=== PATIENT | male | born 1985 | race Two or more races ===

== ENCOUNTER 2023-11-15 07:40 | Inpatient (IN) | payer SELFPAY ==
[2023-11-15] VITALS (14 sets, daily range): BP systolic 115–152; BP diastolic 62–92; PULSE 112–135; RESP 15–20; TEMP 36.4–37.2; O2SAT 96–100
--- NOTE | ~2023-11-15 | CT_ITS ---
EXAMINATION: CT abdomen pelvis w con DATE: 11/15/2023 09:13 INDICATION: Epigastric abdominal pain TECHNIQUE: Computed tomography (CT) of the abdomen and pelvis was performed with 100 CC Omnipaque 350 intravenous contrast. Automated exposure control and iterative reconstruction technique were employe d. Exam dose: 180.30 mGy-cm total exam DLP. COMPARISON: None. FINDINGS: The lung bases are clear. Normal heart size. No pericardial or pleural effusion. There is diffuse fatty infiltration of the liver. No hepatic, splenic, pancreatic, and adrenal or marcus al mass lesion is evident other than a 7.5 mm right renal cyst. The gallbladder is present. No gallbladder wall thickening or pericholecystic fluid or fat stranding. No bile duct or pancreatic duct dilatation. Normal caliber of the abdominal aorta. No intraperitoneal or retroperitoneal or pelvic mass lesion or adenopathy or ascites is detected. Normal appendix. No bowel obstruction, bowel wall thickening, pneumatosis or intraperitoneal free air is detected. Urinary bladder is unremarkable. 2.3 x 3.2 cm structure in the left inguinal canal with attenuation o f approximately 36 Hounsfield units. This might be the testicle. Clinical correlation and possible sc rotal ultrasound may be of benefit as clinically appropriate. Normal caliber of the abdominal aorta. No intraperitoneal or retroperitoneal or pelvic mass lesion or adenopathy or ascites. Normal appendix. No bowel obstruction, bowel wall thickening, pneumatosis or intraperitoneal free air .. Included skeletal structures are unremarkable. IMPRESSION: Hepatic steatosis 7.5 mm right renal cyst Normal appendix Suspected testicle and left inguinal canal Reviewed, dictated and finalized at [facility]. Reviewed, dictated and finalized at location B. UNITY PLACEMENT WORKER
--- NOTE | ~2023-11-15 | US_ITS ---
EXAMINATION: US right upper quadrant DATE: 11/18/2023 08:18 INDICATION: Abnormal liver function tests. TECHNIQUE: Multiple grayscale and Doppler ultrasound images of the abdomen were obtained. COMPARISON: CT abdomen and pelvis 11/15/2023 FINDINGS: The visualized portions of the head and body of the pancreas are normal. There is diffuse h epatic steatosis. No liver surface nodularity. There is normal flow in main portal vein. The gallblad benjamín is normal in size. No gallstones or gallbladder wall thickening. The common duct is normal and me asures 3 mm. IMPRESSION: 1. Diffuse hepatic steatosis. Reviewed, dictated and finalized at location E. DRIVER
--- NOTE | ~2023-11-15 | US_ITS ---
EXAMINATION: US scrotum doppler DATE: 11/17/2023 12:23 INDICATION: possible left retracted testicle . TECHNIQUE: Grayscale and Doppler ultrasound images of the testes were obtained. COMPARISON: None. FINDINGS: The right testis measures 4.6 x 2.3 x 2.9 cm. The left testis measures 4.1 x 2.1 x 3.0 cm. No testicular mass. There is normal vascular flow to both testes. The right epididymis is normal with normal vascular flow. The left epididymis is normal with normal vascular flow. There is no varicocel e or hydrocele. IMPRESSION: Normal scrotal ultrasound findings. Specifically, no evidence of retracted/undescended testicle. Reviewed, dictated and finalized at location K. TER TRIMMER IMPRESSION: Normal scrotal ultrasound findings. Specifically, no evidence of retracted/unde scended testicle.
--- NOTE | 2023-11-15 08:11 | ECG_ITS ---
Measurements Intervals [place] Rate: 93 P: 74 OK: 143 QRS: 48 QRSD: 83 T: 64 QT: 363 QTc: 452 Interpretive Statements SINUS RHYTHM POSSIBLE RIGHT ATRIAL ENLARGEMENT [0.25mV P WAVE] POSSIBLE LEFT ATRIAL ENLARGEMENT [-0.1mV P WAVE IN V1/V2] WITHIN NORMAL LIMITS NO PREVIOUS ECG AVAILABLE FOR COMPARISON Electronically Signed On 11-15-2023 13:52:10 DESIGN/ANIMATION INSTRUCTOR by Ky Dye M.D.
--- NOTE | 2023-11-15 08:11 | ED.ABDPAIN ---
HPI - Abdominal Pain General Chief Complaint: Abdominal Pain Stated Complaint: abd pain Time Seen by Provider: 11/15/23 08:11 Source: patient Mode of arrival: EMS Limitations: clinical condition History of Present Illness HPI narrative: 38 years old male came by ambulance to the ED with severe nausea, and vomiting with epigastric pain started 2 days ago. Patient holding a vomiting bag in his hand, unable to tell me any details was ago non because of the constant dry heaving. He denies medical history, no medications, does not smoke or drink or uses drugs Related Data Allergies Allergy/AdvReac Type Severity Reaction Status Date / Time No Known Allergies Allergy Verified 11/15/23 07:53 Review of Systems Review of Systems: ROS unobtainable: Yes unobtainable due to medical condition Exam Narrative: General appearance: Well-developed, well-nourished Skin: Normal color Head: Normocephalic, nontraumatic Eyes: Clear conjunctiva ENT: Oropharynx normal, ears normal, nose normal Neck: Supple, nontender Chest and respiratory: Airway patent, no respiratory distress, no accessory muscle use Heart: Regular rate/rhythm Abdomen: Soft, severe epigastric tenderness, with severe guarding, no rebound, no organomegaly, quiet bowel sounds GENITAL EXAM SHOWED NORMAL TESTICLES, NO TENDERNESS, NO SWELLING, NORMAL PENIS, INGUINAL AREA WITHIN NORMAL LIMIT, NO SWELLING NO BRUISES NO LYMPHADENOPATHY NO TENDERNESS. Course Vital Signs Vital signs: Vital Signs Temperature 36.4 C L 11/15/23 07:46 Pulse Rate 120 H 11/15/23 07:46 Respiratory Rate 18 11/15/23 07:46 Blood Pressure 115/92 H 11/15/23 07:46 Pulse Oximetry 100 11/15/23 07:46 Oxygen Delivery Room Air 11/15/23 07:46 Temperature 36.4 C L 11/15/23 07:46 Pulse Rate 120 H 11/15/23 07:46 Respiratory Rate 18 11/15/23 07:46 Blood Pressure 127/77 11/15/23 13:00 Pulse Oximetry 96 11/15/23 12:20 Oxygen Delivery Room Air 11/15/23 07:46 MDM - Abdominal Pain MDM Narrative Medical decision making narrative: PATIENT CAME WITH DIFFUSE ABDOMINAL PAIN AND NAUSEA, VOMITING FOR THE LAST 48 HOURS UNABLE TO KEEP ANYTHING DOWN. VITAL SIGNS ON ARRIVAL SHOWED PULSE OF 120 BEATS PER MINUTE, PHYSICAL EXAMINATION SHOWED RESTLESS, ANXIOUS PATIENT HOLDING VOMITING BAG IN HAND, UNABLE TO STOP DRY HEAVING UNABLE TO ANSWER QUESTION APPROPRIATELY BECAUSE OF THE CONSTANT DRY HE. ABDOMINAL EXAM WAS SLIGHTLY TENDER MAINLY EPIGASTRIC AREA. DIFFERENTIAL DIAGNOSIS GASTRITIS, CHOLECYSTITIS, PANCREATITIS, CONSTIPATION, PERFORATION, ANXIETY LIKE SYMPTOMS, CYCLIC VOMITING SYNDROME WORKUP TODAY SHOWED ELEVATED GLUCOSE OF 245, PATIENT IS NOT DIABETIC, CT ABDOMEN AND PELVIS WITH IV CONTRAST SHOWED RIGHT RENAL CYST, SUSPECT TESTICLE AT THE LEFT INGUINAL CANAL, PHYSICAL EXAMINATION SHOWED NORMAL TESTICLES, NO TENDERNESS OR MASS OR SWELLING OF THE LEFT GROIN AREA OR THE TESTICLES. THIS FINDING WAS COINCIDENTAL, PATIENT'S SYMPTOMS DOES NOT MATCH WITH ANY ABNORMAL FINDING ON THE LEFT GROIN AREA. HIGH LIKELY IS CHRONIC OR MISS READING OF THE CT SCAN, PATIENT REQUESTED TO EAT BEFORE HE GETS DISCHARGED, SUBSEQUENTLY VOMITED WITH DRY HEAVE, BLOOD GLUCOSE IS 245, DKA IS A POSSIBILITY, VENOUS BLOOD GAS SHOWED PH OF 7.3, PCO2 IS 23.8 WHICH COULD BE SECONDARY TO METABOLIC ACIDOSIS CAUSING HYPERVENTILATION. PH IS NORMAL PROBABLY BECAUSE PATIENT BLOOD GLUCOSE DECREASED AFTER 2 L OF NORMAL SALINE. Differential Diagnosis Differential diagnosis: Likely abdominal pain and other ( ABOVE) Medical Records Attestation: I reviewed the patient's medical records. Lab Data Attestation: I reviewed the patient's lab results.
[2023-11-15] MEDS: SODIUM CHLORIDE 0.9% IV 2,000 ML 999 ML IV CONT (08:21)
[2023-11-15] MEDS: HYDROmorphone HCL INJ (*CRX) 1 MG/ML SYR 0.5 MG IV PUSH (08:21)
[2023-11-15] MEDS: ONDANSETRON INJ 4 MG/2 ML VIAL IV PUSH ×2 (08:21→17:02)
[2023-11-15] MEDS: diphenhydrAMINE HCl INJ 50 MG/ML VIAL IV PUSH (08:26)
[2023-11-15] MEDS: METOCLOPRAMIDE HCL INJ 10 MG/2 ML VIAL IV PUSH ×2 (08:26→23:06)
[2023-11-15 08:45] LABS: Basophils Percent Auto 0.7 % (0.2-1.2); Eosinophils Absolute Auto 0.2 K/mm3 (0-0.3); Eosinophils Percent Auto 2.7 % (0-4.4); Hematocrit 50.2 % (42.0-52.0); Hemoglobin 17.7 g/dL (14.0-18.0); Immature Granulocyte Absolute 0.01 K/mm3 (0.00-0.031); Immature Granulocyte Percent A 0.2 % (0-0.5); Lymphocytes Absolute Auto 2.13 K/mm3 (0.9-3.2); Lymphocytes Percent Auto 35.7 % (18.3-44.2); Mean Corpuscular HGB Conc 35.3 g/dl (32-36); Mean Corpuscular Volume 87.9 fl (80-100); Mean Platelet Volume 12.7 fl (7.4-10.4); Monocytes Absolute Auto 0.6 K/mm3 (0.1-0.6); Monocytes Percent Auto 9.7 % (2.6-8.5); Neutrophils Absolute Auto 3.1 K/mm3 (1.3-6.7); Platelet Count Result 181 k/mm3 (150-375); Red Blood Count 5.71 M/mm3 (4.6-6.20); Red Cell Distribution Width 11.8 % (11.5-14.5)
[2023-11-15 08:56] LABS: Alanine Aminotransferase 39 U/L (6-50); Albumin Level 4.9 g/dL (3.5-5.1); Alkaline Phosphatase 138 U/L (38-126); Anion Gap 25 mmol/L (8-16); Aspartate Amino Transferase 41 U/L (17-59); Bilirubin,Total 1.2 mg/dL (0.2-1.3); Blood Urea Nitrogen 24 mg/dL (9-20); Calcium 10.1 mg/dL (8.4-10.2); Carbon Dioxide 19 mmol/L (22-30); Chloride 91 mmol/L (98-107); Estimated Glomerular Filt Rate > 60; Glucose 245 mg/dL (65-110); Lipase 99 U/L (23-300); Potassium 3.5 mmol/L (3.4-5.0); Sodium 135 mmol/L (137-145)
[2023-11-15 08:57] LABS: Lactic Acid Reflex 1.8 mmol/L (0.7-2.0)
[2023-11-15 09:03] LABS: INR 0.9; Partial Thromboplastin Time 22.2 SECONDS (22.3-36.8); Prothrombin Time 12.8 Seconds (11.1-14.7)
[2023-11-15 12:43] LABS: Appearance Urine Clear (Clear); Bacteria Urine None Seen /hpf; Bilirubin Urine Negative (Negative); Blood Urine Negative (Negative); Color Urine Yellow (Yellow); Glucose Urine UA 3+ mg/dL (Negative); Ketones Urine 3+ mg/dL (Negative); Leukocyte Esterase Ur Negative LEU/UL (Negative); Nitrate Urine Negative (Negative); Non Pathogenic Casts 0-2; Protein Urine 1+ mg/dL (Negative); RBC Urine 0-2 /hpf (0-2); Squamous Epithelial Cell Urine None seen /hpf (Few); Urobilinogen Urine 0.2 mg/dL (<2.0); WBC Urine 0-5 /hpf
[2023-11-15 12:44] LABS: Add Urine Microscopic? YES; Specific Grav Ur 1.038 (1.001-1.035)
[2023-11-15 14:16] LABS: Fractional Inspired Oxygen 21 %; HCO3 VBG 12.5 mEq/l (24.0-30.0); PO2 VBG 91.2 mmHg (35.0-45.0); pH VBG 7.337 (7.300-7.400)
[2023-11-15 14:17] LABS: Device ROOM AIR; PCO2 VBG 23.8 mmHg (42.0-48.0)
[2023-11-15 15:38] LABS: Need Manual Microscopic Reviewed
[2023-11-15] MEDS: MORPHINE SULFATE (*CRX) 4 MG/ML INJ IV PUSH ×2 (17:03→19:22)
--- NOTE | 2023-11-15 17:50 | ADMGEN ---
This patient, Ana Nolan, was admitted to 2 Medical Room 256-. Patient/family oriented to hospital policies and general routines including ID bracelet, bed and alarms, visiting hours, pain management, procedures, bathroom and other care routines, personal items, smoking policy, room service/diet, and visiting hours. Information on how to activate the Rapid Response Team has been discussed. Patient/Family are encouraged to report perceived risks to care and to ask questions if they do not understand what they are told or what they should do.
[2023-11-15] MEDS: SODIUM CHLORIDE 0.9% IV 1,000 ML 150 ML IV CONT ×2 (19:07→23:07)
[2023-11-15 19:23] LABS: Glucose Point of Care > 500 mg/dl (65-105)
[2023-11-15 19:23] LABS: Glucose Point of Care > 500 mg/dl (65-105)
[2023-11-15] MEDS: LACTATED RINGERS 1,000 ML 999 ML IV CONT (20:06)
[2023-11-15 20:12] LABS: Blood Urea Nitrogen 18 mg/dL (9-20); Calcium 8.5 mg/dL (8.4-10.2); Carbon Dioxide < 5 mmol/L (22-30); Chloride 100 mmol/L (98-107); Estimated Glomerular Filt Rate > 60; Glucose 480 mg/dL (65-110); Potassium 4.6 mmol/L (3.4-5.0); Sodium 133 mmol/L (137-145)
[2023-11-15 20:22] LABS: Alveolar/Arterial O2 Gradient 16.2 mmHg; Base Excess ABG -20.6 mEq/l (+/-2.0); Fractional Inspired Oxygen 21 %; HCO3 ABG 5.5 mEq/l (22.0-26.0); Oxygen Content ABG 19.8 %vol (16.0-22.0); Oxygen Saturation ABG 97.2 % (95.0-100.0); PO2 ABG 114.7 mmHg (80.0-100.0); PO2 FiO2 Ratio Arterial Blood 5.46 %; Total Hemoglobin 14.6 g/dL (12.0-18.0)
[2023-11-15 20:23] LABS: Hemoglobin A1C 10.4 % (<5.7)
[2023-11-15 20:25] LABS: pH ABG 7.166 (7.350-7.450)
[2023-11-15 20:26] LABS: Device ROOM AIR; Modified Allen's Test Pass; PCO2 ABG 15.7 mmHg (35.0-45.0); Site Drawn LEFT RADIAL
[2023-11-15 21:08] LABS: Phosphorus 3.9 mg/dL (2.5-4.5)
--- NOTE | 2023-11-15 22:00 | PC.NURSE ---
This patient, Ana Nolan, was received from [address] [place] [id number] on 11/15/23 at 2200. Patient/family oriented to unit policies and routines. Report received from Meghna BURR.
[2023-11-15] MEDS: INSULIN HUMAN REGULAR (*BKC) 100 UNITS in SODIUM CHLORIDE 0.9% IV 99 ML 6.5 UNITS IV CONT (22:23)
--- NOTE | 2023-11-15 22:52 | PM.IMHP ---
H&P: HPI History of Present Illness Date/Time: 11/15/23 22:52 Chief Complaint: N/V Narrative: 38 y/o M presents here with nausea, vomiting, abdominal pain, and acid reflux with PMH of diabetes. Patient reports nausea, vomiting, diffuse abdominal pain, and acid reflux. Initially started on Saturday (11/10) with poor appetite. Then developed the N/V, abdominal pain, and pain in his throat. LBM was on Sun (11/10). Dx with DM 6 years ago. Initially believed patient was not a diabetic. Patient is prescribed regular insulin and glargine. Patient reports he has not needed these medications, unclear when patient stopped taking his medications. Last filled on 09/15/23, prior to that was filled in February of 2023 (40 day supplies). States that when his belly feels good then he does not need it. Emesis has been bilious, but non-bloody. Initial VS: Hr 120, 97.5F, RR 18, 100% on RA, 115/92. ED workup showed:No leukocytosis or anemia, pH 7.337, pCO2 on VBG was 23.8, gap of 25, sodium 135, initial glucose 245, LFTs normal, lipase 99, UA showed protein, glucose, ketones with a high specific gravity. CT of the abdomen pelvis showed hepatic steatosis, 7.5 mm right renal cyst, normal appendix, and a 2.2 x 3.2 cm structure in the left inguinal canal. repeat labs post admission to the floor showed glucose >500 despite 1L of IV fluids. Repeat BMP and ABG showed sodium of 133, CO2 <5, unable to calculate gap, glucose 480, A1c 10.4, and ABG showed pH 7.166, 15.7, pO2 114.7, and HCO3 5.5. Review of Systems Review of Systems: All systems reviewed & are unremarkable except as noted in HPI and below PMFSH Past Medical History Medical History (Updated 11/15/23 @ 23:47 by Mildred Valdez APRN) Diabetes Surgical History Surgical History (Updated 11/15/23 @ 23:47 by Mildred Valdez APRN) No significant past surgical history Social History Social History Smoking status: Never smoker Alcohol intake: never Substance use: never Substance use type: does not use Do You Feel Safe in your Home?: Yes Lack of Transportation: No Lack of Food: Never True Current Housing: I Have Housing Concerned About Future Housing: No Difficulty Paying Gas/Electric Bills: No Difficulty Paying for Meds: No Currently Unemployed: No Education: Trade/Vocational Certificate Difficulty w/ Childcare or Family Care: No Spiritual care concerns: No Meds Home Medications and Allergies Home Medications Medication Instructions Recorded Confirmed Type insulin glargine 100 unit/mL (3 31 unit subcut DAILY 11/15/23 11/15/23 History mL) subcutaneous pen (Basaglar KwikPen U-100 Insulin) insulin regular human 100 unit/mL See Rx Instructions .Route .COMPLEX 11/15/23 11/15/23 History injection solution (Humulin R Regular U-100 Insulin) Allergies Allergy/AdvReac Type Severity Reaction Status Date / Time No Known Allergies Allergy Verified 11/15/23 18:42 Vital Signs Vital Signs - 24 hr 11/15/23 07:46 11/15/23 07:49 11/15/23 08:46 Temperature 97.5 F L Pulse Rate 120 H Respiratory Rate 18 Blood Pressure 115/92 H 131/90 Pulse Oximetry 100 98 98 Oxygen Delivery Room Air 11/15/23 09:14 11/15/23 09:16 11/15/23 09:30 Temperature Pulse Rate Respiratory Rate Blood Pressure 152/79 H 127/85 Pulse Oximetry 97 97 97 Oxygen Delivery 11/15/23 11:00 11/15/23 12:20 11/15/23 13:00 Temperature Pulse Rate Respiratory Rate Blood Pressure 129/82 127/77 Pulse Oximetry 99 96 Oxygen Delivery 11/15/23 16:57 11/15/23 17:00 11/15/23 17:59 Temperature 98.9 F Pulse Rate 127 H Respiratory Rate 20 Blood Pressure 135/77 130/83 140/92 H Pulse Oximetry 99 100 100 Oxygen Delivery 11/15/23 19:35 Temperature 98.2 F Pulse Rate 112 H Respiratory Rate 18 Blood Pressure 133/62 Pulse Oximetry 98 Oxygen Delivery Exam Const:
[2023-11-15 23:13] LABS: Glucose Point of Care 311 mg/dl (65-105)
[2023-11-15 23:13] LABS: Glucose Point of Care 357 mg/dl (65-105)
[2023-11-16] VITALS (14 sets, daily range): BP systolic 96–123; BP diastolic 53–73; PULSE 73–122; RESP 13–19; TEMP 36.5–37; O2SAT 97–100
[2023-11-16] MEDS: LACTATED RINGERS 1,000 ML 999 ML IV CONT (00:23)
[2023-11-16] MEDS: KCL 20 MEQ/D5/0.45% SOD CHL 1,000 ML 150 ML IV CONT ×2 (00:27→07:18)
[2023-11-16 01:11] LABS: Anion Gap 22 mmol/L (8-16); Blood Urea Nitrogen 16 mg/dL (9-20); Calcium 7.8 mg/dL (8.4-10.2); Carbon Dioxide 9 mmol/L (22-30); Chloride 106 mmol/L (98-107); Estimated Glomerular Filt Rate > 60; Glucose 161 mg/dL (65-110); Potassium 3.7 mmol/L (3.4-5.0); Sodium 137 mmol/L (137-145)
[2023-11-16 01:15] LABS: Glucose Point of Care 196 mg/dl (65-105)
[2023-11-16 01:24] LABS: Glucose Point of Care 161 mg/dl (65-105)
[2023-11-16 02:25] LABS: Glucose Point of Care 167 mg/dl (65-105)
[2023-11-16 03:30] LABS: Glucose Point of Care 153 mg/dl (65-105)
[2023-11-16 04:34] LABS: Basophils Percent Auto 0.3 % (0.2-1.2); Hematocrit 36.8 % (42.0-52.0); Hemoglobin 12.6 g/dL (14.0-18.0); Immature Granulocyte Absolute 0.05 K/mm3 (0.00-0.031); Immature Granulocyte Percent A 0.4 % (0-0.5); Lymphocytes Absolute Auto 2.13 K/mm3 (0.9-3.2); Lymphocytes Percent Auto 18.3 % (18.3-44.2); Mean Corpuscular HGB Conc 34.2 g/dl (32-36); Mean Corpuscular Hemoglobin 31.3 pg (26-34); Mean Corpuscular Volume 91.5 fl (80-100); Mean Platelet Volume 12.3 fl (7.4-10.4); Monocytes Absolute Auto 0.9 K/mm3 (0.1-0.6); Monocytes Percent Auto 7.8 % (2.6-8.5); Neutrophils Absolute Auto 8.5 K/mm3 (1.3-6.7); Neutrophils Percent Auto 73.2 % (45.5-73.1); Platelet Count Result 126 k/mm3 (150-375); Red Blood Count 4.02 M/mm3 (4.6-6.20); White Blood Count 11.6 K/mm3 (4.5-10.0)
[2023-11-16 04:46] LABS: Alanine Aminotransferase 36 U/L (6-50); Albumin Level 3.2 g/dL (3.5-5.1); Alkaline Phosphatase 82 U/L (38-126); Anion Gap 12 mmol/L (8-16); Aspartate Amino Transferase 45 U/L (17-59); Bilirubin,Total 0.6 mg/dL (0.2-1.3); Blood Urea Nitrogen 14 mg/dL (9-20); Calcium 7.5 mg/dL (8.4-10.2); Carbon Dioxide 15 mmol/L (22-30); Chloride 107 mmol/L (98-107); Estimated Glomerular Filt Rate > 60; Glucose 152 mg/dL (65-110); Magnesium 2.1 mg/dL (1.6-2.3); Phosphorus 1.9 mg/dL (2.5-4.5); Potassium 3.6 mmol/L (3.4-5.0); Sodium 134 mmol/L (137-145)
[2023-11-16 05:58] LABS: Alveolar/Arterial O2 Gradient 17.3 mmHg; Fractional Inspired Oxygen 21 %; HCO3 ABG 15.2 mEq/l (22.0-26.0); Oxygen Content ABG 17.4 %vol (16.0-22.0); Oxygen Saturation ABG 97.7 % (95.0-100.0); Oxyhemoglobin 96.7 % THb (90.0-100.0); PCO2 ABG 25.7 mmHg (35.0-45.0); PO2 ABG 101.7 mmHg (80.0-100.0); PO2 FiO2 Ratio Arterial Blood 4.84 %; Total Hemoglobin 12.7 g/dL (12.0-18.0); pH ABG 7.391 (7.350-7.450)
[2023-11-16 06:02] LABS: Device ROOM AIR; Site Drawn RIGHT BRACHIAL
[2023-11-16] MEDS: METOCLOPRAMIDE HCL INJ 10 MG/2 ML VIAL IV PUSH (06:42)
[2023-11-16 06:53] LABS: Glucose Point of Care 169 mg/dl (65-105)
[2023-11-16 06:53] LABS: Glucose Point of Care 168 mg/dl (65-105)
[2023-11-16 06:54] LABS: Glucose Point of Care 192 mg/dl (65-105)
[2023-11-16 07:21] LABS: Glucose Point of Care 192 mg/dl (65-105)
--- NOTE | 2023-11-16 08:43 | WPDCNINT ---
Assessment and Plan Assessment and plan (1) DKA (diabetic ketoacidosis): Code(s): E11.10 - Type 2 diabetes mellitus with ketoacidosis without coma Status: Acute Assessment and Plan: Patient presented with DKA and was started on IV fluid bolus followed by IV fluids along with insulin infusion Serial BMPs were done His anion gap has closed acidosis has improved But he does not appear to be ready to take p.o. diet I will start clear liquid diet and advance as tolerated Continue IV insulin infusion at this time and will transition in his symptoms Continue serial BMPs (2) Abdominal pain: Code(s): R10.9 - Unspecified abdominal pain Status: Acute Assessment and Plan: Patient has abdominal pain which could be from DKA but he does have tenderness in epigastric area. He does admit to taking significant amount of aspirin for pain this could be gastritis or even peptic ulcer disease. He did drop his hemoglobin although he has received significant amount of IV fluids and has not had any bowel movement or vomiting suggestive of bleeding Will check Hemoccult if patient has a bowel movement Start Protonix IV Q 12 hours Monitor hemoglobin at this time Consult GI (3) Abnormal CT scan, pelvis: Code(s): R93.5 - Abnormal findings on diagnostic imaging of other abdominal regions, including retroperitoneum Status: Acute Assessment and Plan: CT scan of pelvis show suggested suspected testicle in left inguinal canal But on exam patient has both testicle in his scrotum. 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 which could be the cause of abnormality on the CT scan (4) Electrolyte abnormality: Code(s): E87.8 - Other disorders of electrolyte and fluid balance, not elsewhere classified Status: Acute Assessment and Plan: Replace low potassium and phosphate Continue monitor electrolytes and replace as needed Plan DVT prophylaxis -SCDs Stress ulcer prophylaxis -PPI Nutrition -clear liquid diet advance as tolerated Code Status - Full Code Total Critical Care Time - 30 minutes Due to a high probability of clinically significant, life threatening deterioration, the patient required my highest level of preparedness to intervene emergently and I personally spent this critical care time directly and personally managing the patient. This critical care time included obtaining a history; examining the patient; pulse oximetry; ordering and review of studies; arranging urgent treatment with development of a management plan; evaluation of patient's response to treatment; frequent reassessment; and discussions with other providers. It was exclusive of separately billable procedures and treating other patients and teaching time. Please see Assessment and Plan section and the rest of the note for further information on patient assessment and treatment Habilitation Specialist Consult Note Consult date: 11/16/23 Reason for consult: DKA HPI: Ana Nolan is a 38 year old male with no known past medical history presented to ER yesterday with chief complaint of nausea vomiting abdominal pain and heartburn. Patient states that he got sick 4 days ago and started having nausea vomiting abdominal pain. 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 He states that he did take some aspirin along with other medications he could not tell me the name. Pain was epigastric in location did not radiate anywhere else was severe constant sharp and associated with nausea and vomiting. Denies any blood in his vomit. Denies any diarrhea but is constipated. He denies any fever chest pain shortness a breath. He denies any recent weight loss again. Prior to the symptoms he states his appetite was good and he denies any dysuria hematuria frequency. He states now he is scared of eating drinki
[2023-11-16 08:46] LABS: Glucose Point of Care 214 mg/dl (65-105)
[2023-11-16 08:46] LABS: Anion Gap 10 mmol/L (8-16); Blood Urea Nitrogen 13 mg/dL (9-20); Calcium 7.4 mg/dL (8.4-10.2); Carbon Dioxide 17 mmol/L (22-30); Chloride 106 mmol/L (98-107); Estimated Glomerular Filt Rate > 60; Glucose 193 mg/dL (65-110); Potassium 3.3 mmol/L (3.4-5.0); Sodium 133 mmol/L (137-145)
[2023-11-16] MEDS: PANTOPRAZOLE SODIUM IV 40 MG VIAL IV PUSH ×2 (08:47→21:15)
[2023-11-16] MEDS: ENOXAPARIN 40 MG/0.4 ML SYRINGE SUB-Q (08:47)
[2023-11-16] MEDS: DOCUSATE SODIUM 100 MG CAPSULE PO ×2 (09:31→21:16)
[2023-11-16] MEDS: POTASSIUM PHOS,M-BASIC-D-BASIC 20 MMOL in SODIUM CHLORIDE 0.9% IV 250 ML 64.17 MMOL IVPB (09:31)
[2023-11-16 09:38] LABS: Glucose Point of Care 223 mg/dl (65-105)
[2023-11-16 10:30] LABS: Glucose Point of Care 228 mg/dl (65-105)
[2023-11-16 11:38] LABS: Glucose Point of Care 230 mg/dl (65-105)
[2023-11-16 12:18] LABS: Hematocrit 36.4 % (42.0-52.0); Hemoglobin 12.4 g/dL (14.0-18.0); Mean Corpuscular HGB Conc 34.1 g/dl (32-36); Mean Corpuscular Hemoglobin 31.1 pg (26-34); Mean Corpuscular Volume 91.2 fl (80-100); Mean Platelet Volume 12.3 fl (7.4-10.4); Platelet Count Result 131 k/mm3 (150-375); Red Blood Count 3.99 M/mm3 (4.6-6.20); White Blood Count 8.2 K/mm3 (4.5-10.0)
[2023-11-16 12:35] LABS: Anion Gap 9 mmol/L (8-16); Blood Urea Nitrogen 11 mg/dL (9-20); Calcium 7.4 mg/dL (8.4-10.2); Carbon Dioxide 18 mmol/L (22-30); Chloride 106 mmol/L (98-107); Estimated Glomerular Filt Rate > 60; Glucose 234 mg/dL (65-110); Potassium 3.5 mmol/L (3.4-5.0); Sodium 133 mmol/L (137-145)
[2023-11-16 12:43] LABS: Glucose Point of Care 315 mg/dl (65-105)
[2023-11-16] MEDS: INSULIN GLARGINE (*BKC) 100 UNITS/ML 25 UNITS SUB-Q ×2 (13:11→21:16)
--- NOTE | 2023-11-16 15:09 | PM.IMPN ---
Progress Note: A&P Assessment and Plan (1) DKA (diabetic ketoacidosis): Code(s): E11.10 - Type 2 diabetes mellitus with ketoacidosis without coma Status: Acute Assessment and Plan: Patient presents with n/v and abdominal pain and found to have DKA ABG 7.17/16/115 on RA. Serum bicarb <5 and AG at least 28. Glucose >500. He was started on IV fluid bolus followed by IV fluids and insulin infusion Serial BMPs and his anion gap has closed Clear liquid diet started and tolerating this. Advance diet as tolerated He was transitioned to SQ insulin (2) Abdominal pain: Code(s): R10.9 - Unspecified abdominal pain Status: Acute Assessment and Plan: Patient presents with abdominal pain most likely related to the DKA. He had tenderness in the epigastric area for other but not currently. He does take a significant amount of aspirin for pain so thus this could be gastritis or PUD Hgb ws 17.7 on admisison and dropped to 12 range but more likely related to IV fluids and that he was hemoconcentrated. Continue Protonix IV Q 12 hours Monitor hemoglobin GI consulted (3) Abnormal CT scan, pelvis: Code(s): R93.5 - Abnormal findings on diagnostic imaging of other abdominal regions, including retroperitoneum Status: Acute Assessment and Plan: CT scan of pelvis show suggested suspected testicle in left inguinal canal Testicles appears to be in the scrotum on exam but could be fluid filled sac. Consider also could be LN. 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 Check scrotal US. (4) Electrolyte abnormality: Code(s): E87.8 - Other disorders of electrolyte and fluid balance, not elsewhere classified Status: Acute Assessment and Plan: Replace low potassium and phosphate Continue monitor electrolytes and replace as needed (5) Diabetes: Code(s): E11.9 - Type 2 diabetes mellitus without complications Status: Acute Assessment and Plan: A1c 10.4. The patient's blood glucose was reviewed on 2/3 Glucose better with insulin drip. Now transtioned to Lantus Continue AccuCheks covering with sliding scale. Hypoglycemia protocol available as needed. Plan DVT prophylaxis -SCDs Stress ulcer prophylaxis -PPI Nutrition -clear liquid diet advance as tolerated Code Status - Full Code Subjective Date/time seen: 11/16/23 15:09 Interval history: 38yo male with DM here for n/v and abdominal pain and found to have DKA Assuming care. Chart reviewed. He is now off the insulin drip. He still feels nausea but better. Tolerating the clear liquid diet. Exam Narrative: AF 98.4 112/73 89 18 98% ra Gen - NARD Chest - CTA bilaterally, nml RR CV - RRR S1/S2. Tele showing sinus tachycardia but no significant dysrhythmias Abd - Soft, NT/ND, Positive BS - testicle descended and no obvious masses in the left inguinal canal. no hernia Ext - No pedal edema Neuro - Alert and oriented. Nonfocal exam. Psych - Nml mood and affect Skin - Warm and dry Objective Data Vital Signs Vital Signs: Vital Signs - 24 hr 11/15/23 16:57 11/15/23 17:00 11/15/23 17:59 Temperature 98.9 F Pulse Rate 127 H Respiratory Rate 20 Blood Pressure 135/77 130/83 140/92 H Pulse Oximetry 99 100 100 Oxygen Delivery 11/15/23 19:35 11/15/23 22:00 11/16/23 00:00 Temperature 98.2 F Pulse Rate 112 H Respiratory Rate 18 Blood Pressure 133/62 Pulse Oximetry 98 Oxygen Delivery Room Air Room Air 11/15/23 22:10 11/16/23 00:00 11/16/23 02:00 Temperature 98.1 F Pulse Rate 135 H 121 H 116 H Respiratory Rate 15 15 Blood Pressure 120/63 Pulse Oximetry 100 100 Oxygen Delivery 11/16/23 02:01 11/16/23 04:00 11/16/23 04:00 Temperature 98.2 F Pulse Rate 116 H 105 H Respiratory Rate 18 13 Bl
[2023-11-16 16:23] LABS: Glucose Point of Care 246 mg/dl (65-105)
[2023-11-16] MEDS: INSULIN ASPART (*BKC) 100 UNITS/ML SUB-Q (17:46)
--- NOTE | 2023-11-16 18:05 | PC.NURSE ---
Dr. Ambrocio at bedside.
--- NOTE | 2023-11-16 18:32 | WPDGICN ---
Assessment and Plan Assessment and plan (1) Nausea and vomiting in adult: Code(s): R11.2 - Nausea with vomiting, unspecified Status: Acute Assessment and Plan: improved as his DKA was treated ppi daily for now and diet as tolerated may need EGD at some point, this can be done as outpatient if symptomatically better (2) DKA (diabetic ketoacidosis): Code(s): E11.10 - Type 2 diabetes mellitus with ketoacidosis without coma Status: Acute Assessment and Plan: treated it seems he was not using his DM medications (3) Abnormal CT scan, pelvis: Code(s): R93.5 - Abnormal findings on diagnostic imaging of other abdominal regions, including retroperitoneum Status: Acute (4) Electrolyte abnormality: Code(s): E87.8 - Other disorders of electrolyte and fluid balance, not elsewhere classified Status: Acute Assessment and Plan: low K replaced GI Consult Note Consult date/time: 11/16/23 18:32 Reason for consult: n/v, epigastric pain HPI: Ana Nolan is a 38 year old male originally from [facility] diagnosed with DM about 6 years ago but apparently has not been using his DM medications. He came to ER with almost 4 days of nausea, vomiting and epigastric abdominal pain and heartburn.? He was taking [id number] medications from [facility] but could not tell me name, probably some aspirin on it. Pain was epigastric in location did not radiate anywhere else and severe associated with nausea and vomiting.? He was diagnosed with DKA then transferred to ICU. Pain is resolved now after DKA resolved, on insulin gtt. CT scan of the abdomen pelvis showed Hepatic steatosis, right renal cyst, Suspected testicle and left inguinal canal. He never had EGD but feeling much better now and tolerating oral. Review of Systems Constitutional: Constitutional: Denies chills Eyes: Eyes: Denies blurry vision ENT: Reports Normal hearing present Cardiovascular: Cardiovascular: Denies chest pain Respiratory: Respiratory: Denies cough Gastrointestinal: Gastrointestinal: Reports abdominal pain and Reports nausea Genitourinary: Genitourinary: Denies dysuria Musculoskeletal: Musculoskeletal: Denies neck pain Integumentary/Breasts: Skin/Breast: Denies rash Neurologic: Denies Abnormal speech present Psychiatric: Psychiatric: Denies behavioral changes [facility] Past Medical History Medical History (Updated 02/03/24 @ 18:36 by Endy Neumann MD) Diabetes Nausea and vomiting in adult Surgical History Surgical History No significant past surgical history Social History Social History (Updated 11/16/23 @ 08:47 by Rao Fatima MD) Social History: Smokes 5 cigarettes a day denies any alcohol or drug use. 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 Smoking status: Never smoker Alcohol intake: never Substance use: never Substance use type: does not use Do You Feel Safe in your Home?: Yes Lack of Transportation: No Lack of Food: Never True Current Housing: I Have Housing Concerned About Future Housing: No Difficulty Paying Gas/Electric Bills: No Difficulty Paying for Meds: No Currently Unemployed: No Education: Trade/Vocational Certificate Difficulty w/ Childcare or Family Care: No Spiritual care concerns: No Meds Home Medications and Allergies Home Medications Medication Instructions Recorded Confirmed Type insulin glargine 100 unit/mL (3 31 unit subcut DAILY 11/15/23 11/15/23 History mL) subcutaneous pen (Basaglar KwikPen U-100 Insulin) insulin regular human 100 unit/mL See Rx Instructions .Route .COMPLEX 11/15/23 11/15/23 History injection solution (Humulin R Regular U-100 Insulin) Allergies Allergy/AdvReac Type Severity Reaction Status Date / Time No Known Allergies Allergy Verified 11/15/23 18:42 Vital Signs Vital Signs - 24 hr 11/15/23 19:35 11/15/23 22:0
[2023-11-16 20:14] LABS: Glucose Point of Care 169 mg/dl (65-105)
[2023-11-17] VITALS (11 sets, daily range): BP systolic 110–140; BP diastolic 64–97; PULSE 72–109; RESP 9–25; TEMP 36.3–36.9; O2SAT 99–100
--- NOTE | 2023-11-17 02:28 | PC.NURSE ---
This RN called to bedside by patient. Patient feels like he has a low blood sugar and requests glucose check. Critical result of 50 obtained. Attempted glucose gel per protocol. Patient unable to tolerate. Requests juice. Gave milk and 2 juices. Repeat glucose of 47. Patient unable to tolerate juice and/or milk. Gave D50.
[2023-11-17] MEDS: DEXTROSE 50% 25 GM/50 ML SYRINGE IV PUSH ×3 (03:00→07:46)
[2023-11-17 03:20] LABS: Glucose Point of Care 50 mg/dl (65-105)
[2023-11-17 03:20] LABS: Glucose Point of Care 234 mg/dl (65-105)
[2023-11-17 03:20] LABS: Glucose Point of Care 47 mg/dl (65-105)
[2023-11-17 04:38] LABS: Hematocrit 34.2 % (42.0-52.0); Hemoglobin 12.1 g/dL (14.0-18.0); Mean Corpuscular HGB Conc 35.4 g/dl (32-36); Mean Corpuscular Hemoglobin 31.3 pg (26-34); Mean Corpuscular Volume 88.6 fl (80-100); Mean Platelet Volume 12.5 fl (7.4-10.4); Platelet Count Result 109 k/mm3 (150-375); Red Blood Count 3.86 M/mm3 (4.6-6.20); Red Cell Distribution Width 11.9 % (11.5-14.5); White Blood Count 4.5 K/mm3 (4.5-10.0)
[2023-11-17 05:55] LABS: Glucose Point of Care 116 mg/dl (65-105)
[2023-11-17 07:39] LABS: Alanine Aminotransferase 29 U/L (6-50); Albumin Level 2.8 g/dL (3.5-5.1); Alkaline Phosphatase 78 U/L (38-126); Anion Gap 2 mmol/L (8-16); Aspartate Amino Transferase 39 U/L (17-59); Bilirubin,Total 0.9 mg/dL (0.2-1.3); Blood Urea Nitrogen 4 mg/dL (9-20); Carbon Dioxide 29 mmol/L (22-30); Chloride 102 mmol/L (98-107); Estimated Glomerular Filt Rate > 60; Glucose 85 mg/dL (65-110); Phosphorus 1.7 mg/dL (2.5-4.5); Potassium 2.4 mmol/L (3.4-5.0); Sodium 133 mmol/L (137-145)
--- NOTE | 2023-11-17 08:18 | WPDINTPN ---
Progress Note: A&P Assessment and Plan (1) DKA (diabetic ketoacidosis): Code(s): E11.10 - Type 2 diabetes mellitus with ketoacidosis without coma Status: Acute Assessment and Plan: Patient presented with DKA and was started on IV fluid bolus followed by IV fluids along with insulin infusion Serial BMPs were done His anion gap has closed and patient has been transition to subcutaneous insulin. He is tolerating p.o. diet Off IV fluid (2) Abdominal pain: Code(s): R10.9 - Unspecified abdominal pain Status: Acute Assessment and Plan: Patient has abdominal pain which could be from DKA but he does have tenderness in epigastric area. He does admit to taking significant amount of aspirin for pain this could be gastritis or even peptic ulcer disease. He did drop his hemoglobin although he has received significant amount of IV fluids and has not had any bowel movement or vomiting suggestive of bleeding Will check Hemoccult if patient has a bowel movement Continue protonix IV Q 12 hours Monitor hemoglobin at this time which has been stable No other signs of active bleeding GI evaluated the patient (3) Abnormal CT scan, pelvis: Code(s): R93.5 - Abnormal findings on diagnostic imaging of other abdominal regions, including retroperitoneum Status: Acute Assessment and Plan: CT scan of pelvis show suggested suspected testicle in left inguinal canal But on exam patient has both testicle in his scrotum. 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 which could be the cause of abnormality on the CT scan Ultrasound scrotum Doppler ordered (4) Electrolyte abnormality: Code(s): E87.8 - Other disorders of electrolyte and fluid balance, not elsewhere classified Status: Acute Assessment and Plan: Replace low potassium and phosphate and recheck Continue monitor electrolytes and replace as needed (5) Hypoglycemia: Code(s): E16.2 - Hypoglycemia, unspecified Status: Acute Assessment and Plan: Patient received additional dose of Lantus last night to pharmacy error. Will discuss with pharmacy and I explained to the patient. Patient ate his breakfast this morning. Will start D5 NS with potassium and check blood sugars every 2 hours. Once stabilized will wean off IV fluids Plan DVT prophylaxis -SCDs Stress ulcer prophylaxis -PPI Nutrition -diabetic diet Code Status - Full Code Transfer out of ICU today Subjective Date/time seen: 11/17/23 Overnight events reviewed. Feeling much better this morning and denies any complaints. He states that his abdominal pain nausea vomiting has resolved and he would like to be discharged. Tolerating p.o. diet. Afebrile p.o. acceptable urine output and stable vital signs Unfortunately patient received additional dose of Lantus last night due to pharmacy are. He was hypoglycemic this morning and was given dextrose now eating breakfast Interval history: 38yo male with DM here for n/v and abdominal pain and found to have DKA Review of Systems Review of Systems: All systems reviewed & are unremarkable except as noted in HPI and below (HPI) Exam Narrative: General: Pt is alert awake and in NAD Lungs/Chest: Trachea central Clear BS B/L, No crackles or wheezing. Cardiac: RRR. Normal S1 S2. No murmurs Circulation: Pedal pulses are intact and symmetrical. Abdomen: Normal bowel sounds.. Soft. ND. No tenderness Extremities: No clubbing, cyanosis or edema. Warm left thumb status post amputation : Lei in place. Scrotal exam done in the presence of a male millwright apprentice was unremarkable both testicles are in place Neurologic: Follows commands. Moves all 4 extremities PERRL AO x3 Skin: No Rash Objective Data Vital Signs Vital Signs: Vital Signs - 24 hr 11/16/23 08:27 11/16/23 10:00 11/16/23 10:00 Temperature Pulse Rate 94 94 Respiratory Rate 1
[2023-11-17 08:19] LABS: Glucose Point of Care 57 mg/dl (65-105)
[2023-11-17 08:19] LABS: Glucose Point of Care 180 mg/dl (65-105)
[2023-11-17] MEDS: PANTOPRAZOLE SODIUM IV 40 MG VIAL IV PUSH (08:30)
[2023-11-17] MEDS: KCL 20 MEQ/D5/0.9% SOD CHL 1,000 ML 50 ML IV CONT (08:30)
[2023-11-17] MEDS: DOCUSATE SODIUM 100 MG CAPSULE PO ×2 (08:30→20:37)
[2023-11-17] MEDS: POTASSIUM PHOS,M-BASIC-D-BASIC 40 MMOL in SODIUM CHLORIDE 0.9% IV 250 ML 43.89 MMOL IVPB (09:36)
[2023-11-17 10:10] LABS: Glucose Point of Care 229 mg/dl (65-105)
[2023-11-17 11:54] LABS: Glucose Point of Care 162 mg/dl (65-105)
--- NOTE | 2023-11-17 12:29 | PM.IMPN ---
Progress Note: A&P Assessment and Plan (1) Diabetes: Code(s): E11.9 - Type 2 diabetes mellitus without complications Status: Acute Assessment and Plan: A1c 10.4. The patient's blood glucose was reviewed on 11/17 Glucose dropped this morning to 47. He received lantus yesterday afternoon and again last night. Dextrose started with benefit Continue AccuCheks covering with sliding scale. Hypoglycemia protocol available as needed. Transportation Planning Technician and zipper lining folder consult (2) DKA (diabetic ketoacidosis): Code(s): E11.10 - Type 2 diabetes mellitus with ketoacidosis without coma Status: Acute Assessment and Plan: Patient presents with n/v and abdominal pain and found to have DKA ABG 7.17/16/115 on RA. Serum bicarb <5 and AG at least 28. Glucose >500. He was started on IV fluid bolus followed by IV fluids and insulin infusion Serial BMPs and his anion gap has closed Clear liquid diet started and diet advanced as tolerated He was transitioned to SQ insulin DKA resolved (3) Abdominal pain: Code(s): R10.9 - Unspecified abdominal pain Status: Acute Assessment and Plan: Patient presents with abdominal pain most likely related to the DKA. He had tenderness in the epigastric area He does take a significant amount of aspirin for pain so thus this could be gastritis or PUD Hgb was 17.7 on admission and dropped to 12 range but more likely related to IV fluids and that he was hemoconcentrated. Hgb stable Continue Protonix IV Q 12 hours GI consulted and appreciate their input Monitor hemoglobin (4) Abnormal CT scan, pelvis: Code(s): R93.5 - Abnormal findings on diagnostic imaging of other abdominal regions, including retroperitoneum Status: Acute Assessment and Plan: CT scan of pelvis show suggested suspected testicle in left inguinal canal Testicles appears to be in the scrotum on exam but could be fluid filled sac. Consider also could be LN in the inguinal canal. 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 Scrotal US ordered and is pending (5) Electrolyte abnormality: Code(s): E87.8 - Other disorders of electrolyte and fluid balance, not elsewhere classified Status: Acute Assessment and Plan: Replace low potassium and phosphate Continue monitor electrolytes and replace as needed Plan DVT prophylaxis -SCDs Stress ulcer prophylaxis -PPI Code Status - Full Code Subjective Date/time seen: 11/17/23 12:29 Interval history: 38yo male with DM here for n/v and abdominal pain and found to have DKA Patieint with hypoglycemia this morning. Patient states he felt this. He tolerated the full liquids without abdominal pain. He was started on D5 for the low sugar. No problems overnight. Exam Narrative: AF 98.5 140/97 85 17 100% ra Gen - NARD Chest - CTA bilaterally, nml RR CV - RRR S1/S2. Tele showing no significant dysrhythmias Abd - Soft, NT/ND, Positive BS Ext - No pedal edema Psych - Nml mood and affect Skin - Warm and dry Objective Data Vital Signs Vital Signs: Vital Signs - 24 hr 11/16/23 14:00 11/16/23 14:00 11/16/23 16:00 Temperature Pulse Rate 89 89 93 Respiratory Rate 18 Blood Pressure 112/73 Pulse Oximetry 98 Oxygen Delivery 11/16/23 16:00 11/16/23 16:00 11/16/23 18:00 Temperature 97.9 F Pulse Rate 93 109 H Respiratory Rate 15 Blood Pressure 115/68 Pulse Oximetry 99 99 Oxygen Delivery Room Air 11/16/23 18:00 11/16/23 20:00 11/16/23 20:00 Temperature 97.7 F Pulse Rate 109 H 79 Respiratory Rate 19 16 Blood Pressure 114/61 104/62 Pulse Oximetry 99 100 Oxygen Delivery Room Air 11/16/23 20:00 11/16/23 22:00 11/17/23 00:00 Temperature Pulse Rate 84 80 Respiratory Rate Blood Pressure Pulse Oximetry
[2023-11-17 14:10] LABS: Glucose Point of Care 247 mg/dl (65-105)
[2023-11-17 15:31] LABS: Anion Gap 1 mmol/L (8-16); Blood Urea Nitrogen 3 mg/dL (9-20); Calcium 7.5 mg/dL (8.4-10.2); Carbon Dioxide 29 mmol/L (22-30); Chloride 103 mmol/L (98-107); Estimated Glomerular Filt Rate > 60; Glucose 222 mg/dL (65-110); Phosphorus 4.2 mg/dL (2.5-4.5); Potassium 2.9 mmol/L (3.4-5.0); Sodium 133 mmol/L (137-145)
--- NOTE | 2023-11-17 15:45 | PC.NURSE ---
This patient, Ana Nolan, was transferred to [facility] via wheelchair without issue on 11/17/23 at 1535. Personal belongings sent with patient. Report given to Pasquale Bowen. Appropriate documentation sent with patient.
--- NOTE | 2023-11-17 15:55 | PC.NURSE ---
This patient, Ana Nolan, was received from [ icu 5] on 11/17/23 at 1545. Patient/family oriented to unit policies and routines
[2023-11-17 16:20] LABS: Glucose Point of Care 246 mg/dl (65-105)
[2023-11-17] MEDS: POTASSIUM CHLORIDE INJ 40 MEQ in SODIUM CHLORIDE 0.9% IV 500 ML 130 MEQ IVPB (16:55)
[2023-11-17] MEDS: INSULIN ASPART (*BKC) 100 UNITS/ML SUB-Q ×2 (16:55→21:53)
--- NOTE | 2023-11-17 18:10 | WPDGIPROGNO ---
Progress Note: A&P Assessment and Plan (1) Abdominal pain: Code(s): R10.9 - Unspecified abdominal pain Status: Acute Assessment and Plan: resolved symptomatic when he came with uncontrolled DM and DKA he is eating without any more issues he does not want EGD he can follow-up as needed in office if symptomatic again and we can always schedule EGD if indicated follow from afar (2) Nausea and vomiting in adult: Code(s): R11.2 - Nausea with vomiting, unspecified Status: Acute Assessment and Plan: resolved (3) DKA (diabetic ketoacidosis): Code(s): E11.10 - Type 2 diabetes mellitus with ketoacidosis without coma Status: Acute Assessment and Plan: treated (4) Diabetes: Code(s): E11.9 - Type 2 diabetes mellitus without complications Status: Acute Subjective Date/time seen: 11/17/23 18:10 Interval history: he is feeling great, having regular diabetic diet and denies any more abdominal discomfort, no nausea he says that won't like to have endoscopic evaluation. Review of Systems Review of Systems: All systems reviewed & are unremarkable except as noted in HPI and below Exam Const: General: comfortable and no acute distress HENMT: Face/Nose/Sinus: Normal nares present Eyes: General: appearance normal, both eyes and all related structures Neck: Neck: no JVD Resp: Auscultation: clear to auscultation bilaterally Cardio: Rate: regular rate Rhythm: regular rhythm GI: Inspection: non-distended GI Palp: Yes Soft to palpation and No Tenderness to palpation present (GI) Auscultation: normal bowel sounds Skin: General skin exam: normal color Neuro: General: gait normal Speech: normal speech Extrem: General: normal to inspection Psych: Mental Status: mental status grossly normal Objective Data Vital Signs Vital Signs: Vital Signs - 24 hr 11/16/23 20:00 11/16/23 20:00 11/16/23 20:00 Temperature 97.7 F Pulse Rate 79 84 Respiratory Rate 16 Blood Pressure 104/62 Pulse Oximetry 100 Oxygen Delivery Room Air 11/16/23 22:00 11/17/23 00:00 11/17/23 00:00 Temperature Pulse Rate 80 109 H Respiratory Rate Blood Pressure Pulse Oximetry Oxygen Delivery Room Air 11/17/23 02:00 11/16/23 22:00 11/17/23 02:00 Temperature 98.2 F Pulse Rate 82 73 83 Respiratory Rate 13 15 Blood Pressure 123/71 111/64 Pulse Oximetry 100 100 Oxygen Delivery 11/17/23 04:00 11/17/23 04:00 11/17/23 06:00 Temperature Pulse Rate 93 92 Respiratory Rate Blood Pressure Pulse Oximetry Oxygen Delivery Room Air 11/17/23 04:00 11/17/23 06:01 11/17/23 08:00 Temperature 98.2 F 98.2 F Pulse Rate 81 92 75 Respiratory Rate 9 L 25 H 17 Blood Pressure 110/68 119/65 123/76 Pulse Oximetry 99 99 100 Oxygen Delivery 11/17/23 08:00 11/17/23 08:00 11/17/23 10:00 Temperature Pulse Rate 74 92 Respiratory Rate Blood Pressure Pulse Oximetry 100 Oxygen Delivery Room Air 11/17/23 10:00 11/17/23 12:00 11/17/23 12:00 Temperature 98.5 F Pulse Rate 97 88 Respiratory Rate 20 17 Blood Pressure 118/64 140/97 H Pulse Oximetry 100 100 100 Oxygen Delivery Room Air 11/17/23 12:00 11/17/23 15:47 Temperature 97.6 F Pulse Rate 85 83 Respiratory Rate 18 Blood Pressure 123/69 Pulse Oximetry 100 Oxygen Delivery Intake/Output Intake/Output: Intake & Output 11/14/23 11/15/23 11/16/23 11/17/23 23:59 23:59 23:59 23:59 Intake Total 4000 4266.667 1015 Output Total 1025 1275 Balance 4000 3241.667 -260 Meds/Results Medications: Active Medications Generic Name Dose Route Start Last Admin Trade Name Freq PRN Reason Stop Dose Admin Dextrose 12.5 gm 11/15/23 19:41 11/17/23 07:46 Dextrose 50% 25 Gm/50 Ml Syringe IV PUSH 12.5 gm PRN PRN Administration Hypoglycemia Protocol Docusate Sodium 100 mg 11/16/23 09:00 11/17/23 08:30 Docusate So
[2023-11-17] MEDS: PANTOPRAZOLE 40 MG TABLET PO (20:37)
[2023-11-17 21:13] LABS: Glucose Point of Care 243 mg/dl (65-105)
[2023-11-17] MEDS: INSULIN GLARGINE (*BKC) 100 UNITS/ML 25 UNITS SUB-Q (21:52)
[2023-11-18 00:09] LABS: Glucose Point of Care 87 mg/dl (65-105)
[2023-11-18] MEDS: GLUCOSE ORAL GEL 15 GM OF GLUCSE IN 37.5 GM TUBE PO (02:15)
[2023-11-18 02:40] LABS: Glucose Point of Care 116 mg/dl (65-105)
[2023-11-18 02:40] LABS: Glucose Point of Care 56 mg/dl (65-105)
[2023-11-18 04:28] LABS: Glucose Point of Care 169 mg/dl (65-105)
[2023-11-18 05:38] LABS: Hemoglobin 12.4 g/dL (14.0-18.0); Mean Corpuscular HGB Conc 35.4 g/dl (32-36); Mean Corpuscular Hemoglobin 31.2 pg (26-34); Mean Corpuscular Volume 87.9 fl (80-100); Platelet Count Result 109 k/mm3 (150-375); Red Blood Count 3.98 M/mm3 (4.6-6.20); Red Cell Distribution Width 11.3 % (11.5-14.5); White Blood Count 3.4 K/mm3 (4.5-10.0)
[2023-11-18 05:49] LABS: Alanine Aminotransferase 66 U/L (6-50); Albumin Level 2.9 g/dL (3.5-5.1); Alkaline Phosphatase 76 U/L (38-126); Anion Gap 2 mmol/L (8-16); Aspartate Amino Transferase 133 U/L (17-59); Bilirubin,Total 0.8 mg/dL (0.2-1.3); Calcium 8.2 mg/dL (8.4-10.2); Carbon Dioxide 33 mmol/L (22-30); Chloride 101 mmol/L (98-107); Estimated Glomerular Filt Rate > 60; Glucose 145 mg/dL (65-110); Phosphorus 2.2 mg/dL (2.5-4.5); Potassium 2.9 mmol/L (3.4-5.0); Sodium 136 mmol/L (137-145)
[2023-11-18 05:51] LABS: Blood Urea Nitrogen < 2 mg/dL (9-20)
[2023-11-18 08:25] LABS: Glucose Point of Care 66 mg/dl (65-105)
[2023-11-18] MEDS: POTASSIUM/PHOSPHORUS/SODIUM 1.5 GM PACKET 1 PACKET PO ×3 (08:32→17:12)
[2023-11-18] MEDS: PANTOPRAZOLE 40 MG TABLET PO (08:32)
[2023-11-18] MEDS: DOCUSATE SODIUM 100 MG CAPSULE PO (08:32)
[2023-11-18] MEDS: POTASSIUM CHLORIDE INJ 40 MEQ in SODIUM CHLORIDE 0.9% IV 500 ML 130 MEQ IVPB (08:35)
[2023-11-18 09:30] VITALS: BMI 24.5
[2023-11-18 09:31] VITALS: BP 120/71; PULSE 89; RESP 17; TEMP 36.6; O2SAT 100
[2023-11-18 09:46] LABS: Glucose Point of Care 250 mg/dl (65-105)
[2023-11-18 12:05] LABS: Glucose Point of Care 279 mg/dl (65-105)
[2023-11-18] MEDS: INSULIN ASPART (*BKC) 100 UNITS/ML SUB-Q ×2 (12:18→17:00)
[2023-11-18 13:08] LABS: Hepatitis B Surface Antigen Negative (Negative)
[2023-11-18 13:14] LABS: HAV RESULT Negative (Negative); Hepatitis B Core IgM Result Negative (Negative)
[2023-11-18 13:26] LABS: Hepatitis C Virus Antibody Negative (Negative)
[2023-11-18 15:27] LABS: Phosphorus 1.9 mg/dL (2.5-4.5); Potassium 3.9 mmol/L (3.4-5.0)
[2023-11-18 16:45] VITALS: BP 139/95; PULSE 79; RESP 16; TEMP 37.1; O2SAT 100
[2023-11-18 16:56] LABS: Glucose Point of Care 282 mg/dl (65-105)
--- NOTE | 2023-11-18 17:17 | PM.DS ---
DS: Admitting Diagnosis Discharge Date 11/18/23 Admitting Diagnosis Abdominal pain DS: Discharge Diagnosis Discharge Diagnosis (1) Diabetes: Code(s): E11.9 - Type 2 diabetes mellitus without complications Status: Acute (2) DKA (diabetic ketoacidosis): Code(s): E11.10 - Type 2 diabetes mellitus with ketoacidosis without coma Status: Acute (3) Abdominal pain: Code(s): R10.9 - Unspecified abdominal pain Status: Acute (4) Abnormal CT scan, pelvis: Code(s): R93.5 - Abnormal findings on diagnostic imaging of other abdominal regions, including retroperitoneum Status: Acute (5) Electrolyte abnormality: Code(s): E87.8 - Other disorders of electrolyte and fluid balance, not elsewhere classified Status: Acute DS: Summary Hospital Course Reason for hospitalization: 38yo male with DM here for n/v and abdominal pain and found to have DKA. Please see H&P for detials. Hospital Course: Patient presented with n/v and abdominal pain and found to have DKA. ABG 7.17/16/115 on RA. Serum bicarb <5 and AG at least 28. Glucose >500. He was started on IV fluid bolus followed by IV fluids and insulin infusion. Serial BMPs were performed and his anion gap has closed. Clear liquid diet started and diet advanced. He was transitioned to SQ insulin. DKA resolved. A1c 10.4. Patient presents with abdominal pain most likely related to the DKA. He had tenderness in the epigastric area. He does take a significant amount of aspirin for pain so thus this could be gastritis or PUD. Hgb was 17.7 on admission and dropped to 12 range but more likely related to IV fluids and that he was hemoconcentrated. Hgb stable in 12. He was treated with Protonix IV. GI consulted but did not have any further recommendations. CT scan of pelvis show suggested suspected testicle in left inguinal canal but testicles appears to be in the scrotum on exam. Scrotal US was normal. he did have elevated LFTs. RUQ ultrasound showed diffuse hepatic steatosis. No gallstones or evidence of acute cholecystitis. Will need to follow up with a GI doctor after discharge when he returns home. This was discussed. Patietn did have electrolyte abnormalities felt related to recent DKA. He had clinical improvement. He was seen by eye dropper assembler and development educator. He overall did well and was able to be discharged home on 11/18/23 Status at Discharge Cognitive/behavioral status at discharge: stable Time Spent with Patient Time attestation: Total time spent providing and/or coordinating discharge services: 35 minutes Time spent: Greater than 30 minutes Exam Narrative: AF 98.7 139/95 79 16 100% ra Gen - NARD Chest - CTA bilaterally, nml RR CV - RRR S1/S2 Abd - Soft, NT/ND, Positive BS Ext - No pedal edema Psych - Nml mood and affect Skin - Warm and dry DS: Data Data Completed and Pending Labs on day of discharge: Labs from last 24 hours 11/18/23 11/18/23 11/18/23 16:40 15:06 11:56 WBC RBC Hgb Hct MCV MCH MCHC RDW Plt Count MPV Sodium Potassium 3.9 Chloride Carbon Dioxide Anion Gap BUN Creatinine Estim Creat Clear Calc Estimated GFR Glucose POC Capillary Glucose 282 H 279 H Calcium Phosphorus 1.9 L Magnesium Total Bilirubin AST ALT Alkaline Phosphatase Total Protein Albumin Hepatitis A IgM Ab Hep Bs Antigen Hep B Core IgM Ab Hepatitis C Ab Screen 11/18/23 11/18/23 11/18/23 09:44 08:23 05:19 WBC 3.4 L RBC 3.98 L Hgb 12.4 L Hct 35.0 L MCV 87.9 MCH 31.2 MCHC 35.4 RDW 11.3 L Plt Count 109 L MPV 13.0 H Sodium 136 L Potassium 2.9 L Chloride 101 Carbon Dioxide 33 H Anion Gap 2 L BUN < 2 L Creatinine 0.50 L Estim Creat Clear Calc Not Reportable Estimated GFR > 60 Glucose 145 H POC Capillary Glucose 250 H 66 Calcium
== END 2023-11-18 18:25 | disposition home or self-care (01) | DRG 420 ==
LOC: ANHED 14:36 → ANH2MED 17:02 → ANHICU 22:13 → ANH2MED 11-17 15:35
PROVIDERS: Internal Medicine; Student in an Organized Health Care Education/Training Program; Admitting Provider Internal Medicine; Emergency Provider Emergency Medicine; Visit Provider Internal Medicine
DX: E11.10 Type 2 diabetes mellitus with ketoacidosis without coma (principal); T38.3X1A Poisoning by insulin and oral hypoglycemic [antidiabetic] drugs, accidental (unintentional), initial encounter; E11.649 Type 2 diabetes mellitus with hypoglycemia without coma; E87.8 Other disorders of electrolyte and fluid balance, not elsewhere classified; K76.0 Fatty (change of) liver, not elsewhere classified; N28.1 Cyst of kidney, acquired; Z79.4 Long term (current) use of insulin
CPT/HCPCS: 36415; 36600; 74177; 76705; 76870; 80048; 80053; 80074; 81001; 82803; 82805; 82948; 83036; 83605; 83690; 83735; 84100; 84132; 84443; 85025; 85027; 85610; 85730; 93005; 93976; 96361; 96365; 96366; 96368; 96372; 96374; 96375; 96376; 99285; A9270; C9113; G0378; J1170; J1200; J1650; J1815; J2270; J2405; J2765; J3480; J7030; J7040; J7050; J7120; Q9967